=== PATIENT | female | born 1980 | race Caucasian/White ===

== ENCOUNTER → 2019-11-27 | Outpatient (CLI) | payer BC, OTHER | LOC: LAB 13:59 | PROVIDERS: ATTEND Orthopaedic Surgery Sports Medicine | DX: Z01.812 Encounter for preprocedural laboratory examination (principal); Z20.828 Contact with and (suspected) exposure to other viral communicable diseases ==

== ENCOUNTER 2019-12-02 06:06 | Day surgery (SDC) | payer BC, OTHER ==
[~2019-12-02] VITALS: Ht 165.1 cm; Wt 61.2 kg
[~2019-12-02 06:06] MED LIST: AMITIZA8 MCG PO; AMPHETAMINE SAL10 MG PO; CALCIUM 500 +1 EAC1 PO; CALCIUM500 MG PO; ESCITALOPRAM OX20 MG PO; FISH OIL 1,0001 EAC9 PO; IRON325 M1 PO; MULTI VITAMIN1 EACH PO; PROAIR HFA8.5 GM INH; PROBIOTIC1 EAC5 PO; QVAR REDIHALE10.6 G1 INH
[2019-12-02 08:41] VITALS: BP 113/71
[2019-12-02 09:55] VITALS: BP 113/71
--- NOTE | 2019-12-02 19:14 | O ---
[address] [address] OPERATIVE REPORT Name: AIMEE FINE Room #: DEP [facility].#: [id number] Admission: 12/02/19 Attend Phys: Neil Delcid MD Discharge: 12/02/19 Date of : 80 Report #: [id number] THIS REPORT FOR: cc: Marita Peña MD,Marita Delcid,Neil Lopez MD ~ CC: Marita Delcid DATE OF SERVICE: 12/02/2019 SERVICE: Orthopedics. FACILITY: [facility]. SURGEON: Neil Delcid MD [employer]: Valerie Valverde NP. INDICATION FOR [employer] OPERATORS: Extremity positioning, suture management, arthroscope management, and assistance with repair. PREOPERATIVE DIAGNOSES: 1. Left hip pain. 2. Left hip femoroacetabular impingement. 3. Left hip labral tear. 4. Left hip paralabral cyst. POSTOPERATIVE DIAGNOSES: 1. Left hip pain. 2. Left hip femoroacetabular impingement. 3. Left hip labral tear. 4. Left hip paralabral cyst. PROCEDURES: 1. Left hip arthroscopic labral repair. 2. Left hip arthroscopic Cam osteoplasty. 3. Left hip arthroscopic subspine decompression. 4. Left hip arthroscopic lateral rim acetabuloplasty. COMPLICATIONS: None. DRAINS: None. SPECIMENS: None. [address] [address] OPERATIVE REPORT Name: AIMEE FINE Room #: DEP [facility]#: [id number] Admission: 12/02/19 Attend Phys: Neil Delcid MD Discharge: 12/02/19 Date of : 80 Report #: [id number] ANESTHESIA: General with regional. FINDINGS: 1. Full thickness anterior labral tear extending laterally, treated with Hira CinchLock suture anchor x 3. 2. Lateral over coverage treated with acetabuloplasty on the rim. 3. Cam impingement. Maximum alpha angle of approximately 60 degrees, treated with Cam osteoplasty. 4. Additional work required for the subspine extraarticular acetabular sided impingement secondary to a prominent anterior inferior iliac spine, which required a subspine decompression with the bur. 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 She had positive pain response with intraarticular injection, but had insufficient pain relief. X-rays were consistent with femoroacetabular impingement. She had a crossover sign secondary to subspine impingement from the anterior inferior iliac spine and she had a lateral over coverage leading to a pincer sided impingement. She also had an alpha angle of 60 degrees, indicating Cam impingement. There is no arthritis with a Tonnis grade of 0. She is indicated for surgical treatment. The MRI showed a labral tear with paralabral cyst. Risks, benefits, alternatives and indications of surgery were discussed with her in detail. Risks include but not limited to pain, bleeding, infection, injury to nerves or blood vessels, persistent pain despite surgical intervention, failure of any repairs, progression of preexisting chondral injury, stiffness, need for further surgery as well as complications related to anesthesia. Despite the risks, she wished to proceed. PROCEDURE IN DETAIL: After left lower extremity was correctly identified in the preoperative holding area as the operative extremity, the patient underwent regional nerve block by Anesthesia. She was then taken to the operating room where general anesthesia was induced without complication. She was padded appropriately. Prophylactic antibiotics were administered at appropriate time. Left leg was then assessed under fluoroscopy to identify the extended Cam deformity. Then the left leg was prepped and draped in standard sterile fashion. Timeout procedure performed. Traction was applied to the left leg. Standard anterolateral viewing portal was established under fluoroscopic guidance, and the anteromedial working portal was established as well. There is erythema and synovitis, which would be the indication for continuous passive motion machine usage postoperatively to minimize the risk of scarring and adhesions, which are known reasons for reoperation in this patient population. Transverse capsulotomy was performed and the shaver was used to perform a synovectomy. The capsule was reflected off [address] [address] OPERATIVE REPORT Name: AIMEE FINE Room #: DEP [facility] M.R.#: [id number] Admission: 12/02/19 Attend Phys: Neil Delcid MD Discharge: 12/02/19 Date of : 80 Report #: [id number] the dorsal side of the labrum where there was a clear anterior labral tear. The subspine impingement lesion was identified as was the rim lateral over coverage and the labrum was dissected off the edge of the lateral acetabulum and the bur was used to perform an acetabuloplasty on the lateral rim correcting it to a more normal appearance and position. The bur was used to then perform the subspine decompression. Additional dissection was required around the anterior proximal capsule and exposing the subspine region. The bur was used to then perform the recession in a typical fashion using x-ray image and arthroscopic visualization. The bony debris was lavaged out of the hip and then labral re-fixation was performed. A total of 3 Henning CinchLock suture anchors, first 2 were placed through the anteromedial portal. Then, we switched the portal and placed 1 more laterally, then the labrum was probed and found to be stable. There was only very minimal chondral labral junctional chondromalacia and so a limited chondroplasty was performed here, but overall, the cartilage looked very healthy. Traction was let down. The hip was flexed up. The transverse capsulotomy was extended down the knee in a T fashion to allow access to the entire Cam deformity. Then, the bur was used to perform a Cam osteoplasty in typical fashion. We lavaged all the bony debris out of the hip, removed the instruments, brought the C-arm in, assessed the resection. I was happy with the appearance of the Cam osteoplasty at that point, then placed the instruments back in the hip, completed the debridement and then repaired the T-shaped capsulotomy with a total of four #2 Vicryl sutures. Instruments were removed. Portal sites were closed. Sterile dressing was applied. The patient was awakened from anesthesia and taken to recovery room in stable condition. No complications. All counts were correct. <ELECTRONICALLY SIGNED> By: Neil Delcid MD 12/02/19 [id number] Neil Delcid MD /nt
== END 2019-12-02 11:00 | disposition home or self-care (01) ==
LOC: OR → TBA 06:22 → OR 08:53
PROVIDERS: ATTEND Orthopaedic Surgery Sports Medicine
DX: M25.552 Pain in left hip (principal); M25.852 Other specified joint disorders, left hip; S73.102A Unspecified sprain of left hip, initial encounter; M24.852 Other specific joint derangements of left hip, not elsewhere classified; J45.909 Unspecified asthma, uncomplicated; D64.9 Anemia, unspecified; F32.9 Major depressive disorder, single episode, unspecified; Z98.890 Other specified postprocedural states; Z79.899 Other long term (current) drug therapy; X58.XXXA Exposure to other specified factors, initial encounter; Y93.89 Activity, other specified; Y92.89 Other specified places as the place of occurrence of the external cause; Y99.8 Other external cause status
CPT/HCPCS: 50010; 50101; 50386; 51320; 51538; 52001; 52282; 52304; 56524; 56527; 57092; 57103; 58273; 58274; 62110; 62900; 70005

== ENCOUNTER → 2020-02-01 | Outpatient (CLI) | payer BC, OTHER ==
[~2020-02-01] MED LIST changes: +ALLEGRA ALLERG180 MG PO; +DEXTROAMP-AMPHE15 MG PO
== END ==
LOC: LAB 08:58
PROVIDERS: ATTEND Orthopaedic Surgery Sports Medicine
DX: Z01.812 Encounter for preprocedural laboratory examination (principal); Z20.828 Contact with and (suspected) exposure to other viral communicable diseases

== ENCOUNTER → 2020-02-29 | Outpatient (CLI) | payer BC, OTHER | LOC: LAB 07:42 | PROVIDERS: ATTEND Orthopaedic Surgery Sports Medicine | DX: Z01.812 Encounter for preprocedural laboratory examination (principal); Z20.828 Contact with and (suspected) exposure to other viral communicable diseases ==

== ENCOUNTER 2020-03-02 08:04 | Day surgery (SDC) | payer BC, OTHER ==
[~2020-03-02] VITALS: Ht 165.1 cm; Wt 61.2 kg
--- NOTE | ~2020-03-02 | O ---
[address] [address] OPERATIVE REPORT Name: AIMEE FINE Room #: DEP [facility].#: [id number] Admission: 03/02/20 Attend Phys: Neil Delcid MD Discharge: 03/02/20 Date of : 80 Report #: [id number] THIS REPORT FOR: cc: Marita Peña MD, Karol L. MD McCabe,Neil Lopez MD ~ DATE OF SERVICE: 03/02/2020 SERVICE: Orthopedics. FACILITY: [facility]. SURGEON: Neil Delcid MD WINDOWS SERVER SPECIALIST: Valerie Valverde NP. INDICATION FOR WINDOWS SERVER SPECIALIST: Extremity positioning, suture management, arthroscope management, assistance with the repair. PREOPERATIVE DIAGNOSES: 1. Right hip pain. 2. Combined type right hip femoroacetabular impingement. 3. Right hip labral tear. 4. Right hip paralabral cyst. POSTOPERATIVE DIAGNOSES: 1. Right hip pain. 2. Combined type right hip femoroacetabular impingement. 3. Right hip labral tear. 4. Right hip paralabral cyst. PROCEDURES: 1. Right hip arthroscopic labral repair. 2. Right hip arthroscopic Cam osteochondroplasty. 3. Right hip arthroscopic extraarticular subspine acetabuloplasty. 4. Right hip arthroscopic debridement with a cyst resection. COMPLICATIONS: None. DRAINS: None. SPECIMENS: None. ANESTHESIA: General with LMA. [address] [address] OPERATIVE REPORT Name: AIMEE FINE Room #: DEP [facility]#: [id number] Admission: 03/02/20 Attend Phys: Neil Delcid MD Discharge: 03/02/20 Date of : 80 Report #: [id number] FINDINGS: 1. Anterior detached labral tear with more peripheral chondral wave sign, treated with Hira CinchLock suture anchor x 3. 2. Dense prominent narrow but dense and prominent anterior inferior iliac spine causing subspine impingement treated with subspine decompression. 3. Moderate to large Cam deformity with maximum alpha angle around 60 degrees, treated with Cam osteoplasty. 4. Capsular repair with #2 Vicryl x 5. HISTORY: The patient is a 40-year-old female with a history of bilateral hip femoroacetabular impingement. She recently underwent successful management of her left hip impingement. She had similar symptoms in the right and wished to have definitive treatment to this side as well. She has been treated for over 6 months with conservative measures including rest, activity modification, physical therapy, oral medicines and intraarticular injection. She had positive pain response from the intraarticular injection. Preoperative imaging was consistent with combined-type femoroacetabular impingement with closed growth plates and Tonnis of 0 indicating no arthritis with an alpha angle of approximately 60 degrees and a crossover sign secondary to a prominent anterior inferior iliac spine. MRI showed a full thickness labral tear and overall intact articular cartilage. There was a small paralabral cyst on the right side as well. The right hip was therefore indicated for surgical treatment. Risks, benefits, alternatives, and indication of surgery discussed with her in detail. Risks include but not limited to pain, bleeding, infection, injury to nerves or blood vessels, persistent pain despite surgical intervention, failure of any repairs, progression of preexisting chondral injury, stiffness, need for further surgery as well as complications related to anesthesia such as stroke, heart attack, pulmonary complications, thromboembolic disease and . Despite these risks, she wished to proceed. PROCEDURE IN DETAIL: After the right lower extremity was correctly identified in the preoperative holding area as the operative extremity, the patient was taken to the operating room where general anesthesia was induced without complications and was padded appropriately. Prophylactic antibiotics were administered at appropriate time. C-arm was used to identify the extended Cam deformity, which extended from about the [address] way to the 70-degree position and was quite dense in the anterolateral aspect of the proximal femur. Right hip was prepped and draped in standard sterile fashion. Timeout procedure performed. Traction was applied. Standard anterolateral viewing portal was established followed by mid anterior working portal. There was noted to be synovitis and erythema. The capsule was the reason for the continuous passive motion machine using postoperatively, which is meant to decrease the risk of scarring and adhesions as these can be reasons for reoperation in this patient population. Transverse capsulotomy was performed and then diagnostic arthroscopy was performed as well. There was no significant [place] [id number] OPERATIVE REPORT Name: AIMEE FINE Room #: DEP [facility] Gabrielle#: [id number] Admission: 03/02/20 Attend Phys: Neil Delcid MD Discharge: 03/02/20 Date of : 80 Report #: [id number] articular cartilage damage on this right hip. She did have a chondral wave sign and some fraying at the chondral labral junction anteriorly to the cartilage overall looked quite healthy. The capsule was reflected off the dorsal side of the labrum allowing exposure of the subspine region as well as the acetabular rim. She does not have rim over coverage, so no rim resection was required. However, she did have subspine impingement similar to the contralateral extremity and so the bur was used to perform a thorough subspine decompression after the capsule had been dissected around this. This is additional work required on the acetabular side and then just simple rim preparation for labral repair and efforts were made to retain as much capsule as possible and be protective of the capsular tissue. Overall, her capsule is on the soft and friable side anteriorly, but anterolaterally, it was very healthy and a standard capsular tissue. Once the subspine impingement lesion was exposed, the bur was used to perform the resection and the bur was used to decorticate the acetabular rim to create a fresh bleeding surface for labral fixation and then the first 2 acetabular labral suture anchors were placed for the repair. The first more anteriorly, the second laterally, after the two anchors were deployed, I assessed the repair and there was still some bowstringing of the labrum anteriorly and a little bit of increased mobility, so placed a third anchor between these and this reduced the labrum anatomically along the acetabular rim and had good compression of the labrum on the rim as well. It was stable to probing at this point and traction was then let down. The hip was flexed up. Attention turned towards peripheral compartment where the transverse capsulotomy was extended down the femoral neck in a T-fashion and then the bur was used to perform a Cam osteoplasty in typical fashion. I removed the instruments, brought C-arm back in and identified some additional bone that needed to be resected over the lateral shoulder. Instruments were then placed back into the hip. The Cam osteoplasty was completed with the bur and then I removed the instruments, brought C-arm in again and assessed the resection. I was happy with the appearance of the resection. At this point, I placed the instruments back in the hip, lavaged the bony debris out of the hip and then I repaired the T-shaped capsulotomy with a total of five #2 Vicryl sutures. The instruments were removed. Portal sites were closed. Sterile dressing was applied. The patient was awakened from anesthesia and taken to recovery room in stable condition. There were no complications and all counts were recorded as were correct. By: [id number] Neil Delcid MD /nt
[2020-03-02 08:45] LABS: HEMATOCRIT 40.6 % (37.0-47.0); HEMOGLOBIN 13.5 gm/dL (12.0-15.0); MCH 30.3 pg (26.0-34.0); MCHC 33.2 g/dL (28.0-37.0); MCV 91.2 fL (80.0-100.0); RBC 4.45 mil/uL (4.20-5.00); RDW 13.2 % (10.5-14.5); WBC 5.8 thou/uL (4.0-11.0)
[2020-03-02 09:44] VITALS: BP 114/83
[2020-03-02 11:42] VITALS: BP 114/83
== END 2020-03-02 13:05 | disposition home or self-care (01) ==
LOC: OR 08:04 → TBA 08:04 → OR 09:55
PROVIDERS: ATTEND Orthopaedic Surgery Sports Medicine
DX: M25.551 Pain in right hip (principal); S73.101A Unspecified sprain of right hip, initial encounter; M71.351 Other bursal cyst, right hip; M25.851 Other specified joint disorders, right hip; J45.909 Unspecified asthma, uncomplicated; F32.9 Major depressive disorder, single episode, unspecified; F41.9 Anxiety disorder, unspecified; Z98.890 Other specified postprocedural states; Z79.899 Other long term (current) drug therapy; X58.XXXA Exposure to other specified factors, initial encounter; Y93.89 Activity, other specified; Y99.8 Other external cause status; Y92.89 Other specified places as the place of occurrence of the external cause
CPT/HCPCS: 50010; 50101; 50386; 51320; 51538; 52282; 52304; 56524; 56527; 57092; 57103; 58273; 58274; 62110; 62900; 70005